=== PATIENT | female | born 2000 | race Caucasian/White ===

== ENCOUNTER 2025-03-24 11:17 | Outpatient (CLI) | payer BC, SELFPAY ==
--- NOTE | ~2025-03-24 | MR_ITS ---
MRI of the cervical spine Clinical History: Radiculopathy Technique: Axial T2-weighted and gradient images, and sagittal T1-weighted, T2-weighted, and STIR ananda ges were acquired. Findings: There is no fracture or subluxation of the cervical spine. There is mild straightening of n ormal cervical lordosis. No marrow signal abnormality seen. There is mild right foraminal disc osteophyte complex at C7-T1 with probable mild right neural forami nal narrowing at this level. No other spinal canal stenosis, cord compression, or neural foraminal na rrowing seen in the remainder of the cervical spine. No abnormal signal seen in the spinal cord. Paravertebral soft tissues are unremarkable. Impression: Probable mild right neural foraminal narrowing at C7-T1, as detailed above. Reviewed, dictated and finalized at [facility]. Impression: Probable mild right neural foraminal narrowing at C7-T1, as detailed above.
== END 2025-03-24 11:18 | disposition home or self-care (01) ==
PROVIDERS: PCP Family Medicine; Visit Provider Family Medicine
DX: M54.12 Radiculopathy, cervical region (principal)
CPT/HCPCS: 72141

== ENCOUNTER 2025-05-05 08:53 | Outpatient (CLI) | payer BC, SELFPAY ==
--- OUTSIDE RECORDS SUMMARY | 2025-05-05 09:11 | XMS_ITS | Encounter Summary ---
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
--- OUTSIDE RECORDS SUMMARY | 2025-05-05 09:11 | XMS_ITS | Clinical Summary ---
Author Organization [facility] Address [facility] [place] [address] Care Team Providers Care Ring Barker Operator Name Role Phone Pedrito Clarke MD Primary Care Provider +- [phone] Allergies No known active allergies Active Problems Problem Noted Date Diagnosed Date Tarsal tunnel syndrome of left side 05/07/2019 Social History Tobacco Use Types Packs/Day Years Used Date Smoking Tobacco: Never Smokeless Tobacco: Never Alcohol Use Standard Drinks/Week Comments No 0 (1 standard drink = 0.6 oz pur e alcohol) AUDIT-C Answer Date Recorded Frequency of Alcohol Consumption Never 05/07/2019 Average Number of Drinks Not on file 019 Frequency of Binge Drinking Not on file 04/21 Comments Unknown Sex and Gender Information Value Date Recorded Sex Assigned at Not on file 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 Gender Identity Not on file Sexual Orientation Not on file Last Filed Vital Signs Vital Sign Reading Time Taken Comments Blood Pressure 129/94 12/07/2016 2:07 PM INFORMATION SCIENTIST Pulse 100 12/07/2016 2:07 PM INFORMATION SCIENTIST Temperature - - Respiratory Rate - - Oxygen Saturation - - Inhaled Oxygen Concentration - - Weight 99.8 kg (220 lb) 05/07/2019 4:24 PM CDT Height 165.1 cm (5' 5) 05/07/2019 4:24 PM CDT Body Mass Index 36.61 05/07/2019 4:24 PM CDT Plan of Treatment Health Maintenance Due Date Last Done Comments Cervical Cancer Screening Pap Smear (Age 21 to 29) Every 3 Years 2001 Cervical Cancer Screening 2001 Annual Physical 2004 Meningococcal B Vaccine (1 of 2 - Standard) 2017 Hepatitis C 2019 COVID-19 Vaccine ( season) 2024 10/10/2021, 02/04/2021, 12/29/2020 DTaP, Tdap and Td Vaccines (8 - Td or Tdap) 06/20/2033 06/20/2023, 04/23/2012, 02/13/2006, Additional history exists Hepatitis B Vaccines Completed 07/30/2002, 2001, 2001 Pneumococcal Vaccine: Pediatrics (0 to 5 Years) and At-Risk Patients (6 to 49 Years) Aged Out 07/30/2002 No longer eligible based on patient's age to complete this topic HPV Vaccines Completed 04/07/2013, 10/24, 04/23/2012 Meningococcal Vaccine Completed 07/30/2018 RSV Immunizations Under 20 Months Aged Out No longer eligible based on patient's age to complete this topic Insurance [facility] Care Teams Ring Barker Operator Relationship Specialty Start Date End Date Pedrito Clarke MD [address] [place] [phone] PCP - General FAMILY PRACTICE 05/06/19
--- NOTE | 2025-05-05 11:00 | NEURO_ITS ---
Impression: # Non-Diabetic with negative family history.Complains of numbness of Upper & Lower Extremities ? # Normal Nerve Conduction Study ? # Normal Needle/ EMG exam with no neurogenic changes ? # Clinical correlation recommended ,Could be related to small fiber neuropathy. Nerve Conduction Studies ?Stim Site NR Peak (ms) P-T Amp (?V) Site1 Site2 Delta-P (ms) Dist (cm) Neno (m/s) Left Median Anti Sensory (2-3nd Digit) Wrist ? 2.6 135.3 Wrist 2-3nd Digit 2.6 14.0 54 Wrist ? 2.6 137.8 Wrist 2-3nd Digit 2.6 14.0 54 Right Median Anti Sensory (2-3nd Digit) Wrist ? 2.4 105.0 Wrist 2-3nd Digit 2.4 14.0 58 Wrist ? 2.4 106.0 Wrist 2-3nd Digit 2.4 14.0 58 Left Radial Anti Sensory (Base 1st Digit) Wrist ? 1.7 34.8 Wrist Base 1st Digit 1.7 0.0 Right Radial Anti Sensory (Base 1st Digit) Wrist ? 1.8 38.7 Wrist Base 1st Digit 1.8 0.0 Left Sup Fibular Anti Sensory (Ant Lat Mall) 14 cm ? 2.5 12.1 14 cm Ant Lat Mall 2.5 16.0 64 Right Sup Fibular Anti Sensory (Ant Lat Mall) 14 cm ? 3.1 18.0 14 cm Ant Lat Mall 3.1 16.0 52 Left Sural Anti Sensory (Lat Mall) Calf ? 3.3 26.2 Calf Lat Mall 3.3 16.0 48 Right Sural Anti Sensory (Lat Mall) Calf ? 3.4 14.4 Calf Lat Mall 3.4 16.0 47 Left Ulnar Anti Sensory (5th Digit) Wrist ? 2.3 97.8 Wrist 5th Digit 2.3 14.0 61 Right Ulnar Anti Sensory (5th Digit) Wrist ? 2.2 93.8 Wrist 5th Digit 2.2 14.0 64 ?Stim Site NR Onset (ms) O-P Amp (mV) Site1 Site2 Delta-0 (ms) Dist (cm) Neno (m/s) Left Median Motor (Abd Poll Brev) Wrist ? 2.6 9.3 Elbow Wrist 4.0 24.0 60 Elbow ? 6.6 5.0 Right Median Motor (Abd Poll Brev) Wrist ? 2.3 9.5 Elbow Wrist 4.1 26.0 63 Elbow ? 6.4 7.8 Left Peroneal Motor (Vastus Med) Ankle ? 4.1 2.4 Popit Ankle 6.9 38.0 55 Popit ? 11.0 2.4 Right Peroneal Motor (Vastus Med) Ankle ? 3.8 4.2 Popit Ankle 6.9 38.0 55 Popit ? 10.7 4.1 Left Tibial Motor (Abd Marshall Brev) Ankle ? 4.0 5.1 Knee Ankle 7.8 39.0 50 Knee ? 11.8 6.3 Right Tibial Motor (Abd Marshall Brev) Ankle ? 4.2 1.9 Knee Ankle 6.3 40.0 63 Knee ? 10.5 5.4 Left Ulnar Motor (Abd Dig Minimi) Wrist ? 2.3 5.8 A Elbow Wrist 4.3 26.0 60 A Elbow ? 6.6 5.9 B Elbow Wrist 3.6 20.0 56 B Elbow ? 5.9 5.8 Right Ulnar Motor (Abd Dig Minimi) Wrist ? 2.0 7.0 A Elbow Wrist 4.3 27.0 63 A Elbow ? 6.3 5.5 B Elbow Wrist 3.3 20.0 61 B Elbow ? 5.3 3.7 Electromyography ?Side Muscle Nerve Root Ins Act Fibs Amp Dur Recrt Comment Right 1stDorInt Ulnar C8-T1 Nml Nml Nml Nml Nml Right Ext Indicis Radial (Post Int) C7-8 Nml Nml Nml Nml Nml Right Ext Digitorum Radial (Post Int) C7-8 Nml Nml Nml Nml Nml Right BrachioRad Radial C5-6 Nml Nml Nml Nml Nml Right PronatorTeres Median C6-7 Nml Nml Nml Nml Nml Right Abd Poll Brev Median C8-T1 Nml Nml Nml Nml Nml Right ABD Dig Min Ulnar C8-T1 Nml Nml Nml Nml Nml Right FlexPolLong Median (Ant Int) C7-8 Nml Nml Nml Nml Nml Right Abd Poll Long Radial (Post Int) C7-8 Nml Nml Nml Nml Nml Right AntTibialis Dp Br Fibular L4-5 Nml Nml Nml Nml Nml Right Gastroc Tibial S1-2 Nml Nml Nml Nml Nml Right Fibularis Long Sup Br Fibular L5-S1 Nml Nml Nml Nml Nml Right Flex Dig Long Tibial L5-S2 Nml Nml Nml Nml Nml Right Ext Dig Brev Dp Br Fibular L5, S1 Nml Nml Nml Nml Nml Right QuadratusFem QuadFemoris L4-5, S1 Nml Nml Nml Nml Nml Left AntTibialis Dp Br Fibular L4-5 Nml Nml Nml Nml Nml Left Gastroc Tibial S1-2 Nml Nml Nml Nml Nml Left Fibularis Long Sup Br Fibular L5-S1 Nml Nml Nml Nml Nml Left Flex Dig Long Tibial L5-S2 Nml Nml Nml Nml Nml Left Ext Dig Brev Dp Br Fibular L5, S1 Nml Nml Nml Nml Nml Left QuadratusFem QuadFemoris L4-5, S1 Nml Nml Nml Nml Nml Left 1stDorInt Ulnar C8-T1 Nml Nml Nml Nml Nml Left Ext Indicis Radial (Post Int) C7-8 Nml Nml Nml Nml Nml Left Ext Digitorum Radial (Post Int) C7-8 Nml Nml Nml Nml Nml Left BrachioRad Radial C5-6 Nml Nml Nml Nml Nml Left PronatorTeres Median C6-7 Nml Nml Nml Nml Nml Left Abd Poll Brev Median C8-T1 Nml Nml Nml Nml Nml Left ABD Dig Min Ulnar C8-T1 Nml Nml Nml Nml Nml Left FlexPolLong Median (Ant Int) C7-8 Nml Nml Nml Nml Nml Left Abd Poll Long Radial (Post Int) C7-8 Nml Nml Nml Nml Nml
== END 2025-05-05 08:54 | disposition home or self-care (01) ==
PROVIDERS: PCP Family Medicine; Visit Provider Family Medicine
DX: M54.12 Radiculopathy, cervical region (principal)
CPT/HCPCS: 95886; 95913